=== PATIENT | male | born 1945 | race Caucasian/White ===

== ENCOUNTER 2018-05-17 10:36 | Emergency (ER) | payer OTHER ==
--- NOTE | 2018-05-17 11:01 | EDPHY ---
General Time Seen by Provider: 05/17/18 10:58 Narrative: CHIEF COMPLAINT: Left leg pain HISTORY OF PRESENT ILLNESS: Patient presents with complaints of left lower extremity pain and swelling. He reports history of squamous cell lesion excision on April 27 back in [place]. He subsequently developed some pain and swelling in the area. On May 08 he was evaluated by a physician there performed incision and drainage. He was told this was a hematoma with surrounding cellulitis, he was placed on oral clindamycin 3 times daily. At that time he also stopped taking his daily aspirin. He has been taking this as prescribed without missing any medication. Over the past few days, as they have been traveling from [facility], he notes increasing pain and swelling of this area. It is located on the left medial calf. There is no warmth. There is no fever. It is moderately painful and wakes him at night. There is some increasing firmness stem. He has no complaints distal to this. No other associated complaints or modifying factors. REVIEW OF SYSTEMS: Ten systems reviewed and are negative unless otherwise noted in the HPI PCP: In [place] SPECIALISTS: In [place] PAST MEDICAL HISTORY: Squamous cell carcinomas PAST SURGICAL HISTORY: Squamous cell lesion excision on the left calf April 27 SOCIAL HISTORY: Nonsmoker. Lives independently with his spouse in [place] FAMILY HISTORY: Noncontributory EXAMINATION General Appearance: Alert, no distress Head: normocephalic, atraumatic Eyes: Pupils equal and round, no conjunctival pallor or injection ENT, Mouth: Mucous membranes moist Neck: Normal inspection, supple, non-tender Respiratory: No retractions or distress Cardiovascular: Regular rate. Symmetric DP and PT pulses 2+. Good signs of perfusion left lower extremity. Neurological: A&O, nonfocal, normal steady gait. Skin: Warm and dry, no cellulitis. There is a left anteromedial calf hematoma with small area of fluctuance centrally. There is no warmth. No crepitus. No drainage. Extremities: Tenderness in the left medial calf hematoma. There is no significant edema. No tenderness of the left foot, ankle or knee. Range of motion of the ankles and knees are symmetric and without pain. There is no pain with passive dorsiflexion of the ankles. Psychiatric: Mood and affect normal DIFFERENTIAL DIAGNOSES: Including but not limited to hematoma, abscess, cellulitis, DVT MDM: 11:00 a.m. Left medial calf hematoma, tenderness an ongoing pain since May 08. He is status post excision and drainage with clindamycin or oral therapy since that time. He has no redness or warmth. His vital signs are within normal limits. He is neuro intact distally. No evidence of joint involvement. I have ordered ultrasound of the lower extremity. 12:05 p.m. Notified by radiologist Dr. Ho. There is a large hematoma without any evidence of DVT. I have discussed the case with Dr. Baez, and she will evaluate the patient for possible debridement. 12:30 p.m. Patient has been evaluated by Dr. Baez. She is going to perform incision and drainage of retained hematoma. 12:50 p.m. Hematoma has been evacuated by Dr. Bethanie Baez. She discussed wound care and continued clindamycin as prescribed with no further prescription. I will provide the prescription for pain medication. She would like to see him in the office as she has instructed him to do so. We discussed this plan he is comfortable this. We have also discussed ED precautions. I have answered all his questions. He discharged home stable condition per SUPERVISION: This patient was independently evaluated without direct involvement of or examination by the attending physician. - History Smoking Status: Never smoked - Objective Vital Signs: Initial Vital Signs Temperature (C) 97.9 F 05/17/18 10:37 Heart Rate 67 05/17/18 10:37 Respiratory Rate 16 05/17/18 10:37 Blood Pressure 124/77 H 05/17/18 10:37 O2 Sat (%) 95 05/17/18 10:37 O2 Delivery Mode Room Air Allergies/Adverse Reactions: No Known Allergies Allergy (Unverified 05/17/18 10:44) Home Medications: Medication Instructions Recorded Aspirin [Aspirin 81mg (*)] 05/17/18 Clindamycin 150 mg PO 05/17/18 oxyCODONE HCL/ACETAMINOPHEN 1 each PO Q4-6PRN PRN #11 tablet 05/17/18 [Percocet 5-325 mg Tablet] Departure - Departure Disposition: Home, Routine, Self-Care Clinical Impression: Infection of hematoma of wound, Hematoma Condition: Good Instructions: Oxycodone/Acetaminophen (By mouth), Hematoma (ED) Additional Instructions: 1. Medication as prescribed as needed 2. Wound care as discussed and demonstrated with Dr. Baez 3. Follow up with Dr. Baez on Friday at 9:00 a.m. Number for ED precautions as discussed Referrals: Bethanie Baez MD [Medical Doctor] - As per Instructions Prescriptions: oxyCODONE HCL/ACETAMINOPHEN [Percocet 5-325 mg Tablet] 1 each PO Q4-6PRN PRN # 11 tablet PRN Reason: Pain, Breakthrough
[2018-05-17 13:10] VITALS: BP 150/78
--- NOTE | 2018-05-17 14:04 | GCON ---
[f rep st] CONSULTATION CHIEF COMPLAINT: Left lower extremity pain. HISTORY OF PRESENT ILLNESS: The patient is a 72-year-old man who had a squamous cell excised from hi s leg on April 27 in [place]. He developed pain and swelling and had an incision and drainage perfor med on May 08. They initially thought they would pack it, but decided not to. He had surrounding cellulitis, has been placed on clindamycin, and the cellulitis has resolved. He will be in [place] for 3 weeks. He presents because the pain is worsening. He has no erythema. No fevers. PAST MEDICAL HISTORY: Squamous cell carcinoma. PAST SURGICAL HISTORY: Removal. SOCIAL HISTORY: He is a nonsmoker. He has been to his current for 5 years. He is reti red from the [employer]. 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 REVIEW OF SYSTEMS: 10-point review of systems negative. FAMILY HISTORY: Noncontributory. PHYSICAL EXAM: VITAL SIGNS: 36.6, 59, 150/78, 18, 93% on room air. GENERAL: Pleasant, well-nouris hed, well-groomed man sitting on exam table with at bedside. HEENT: Normocephalic. No gross h earing deficits. Mucous membranes moist. Pupils equal and round. No scleral icterus. LUNGS: No i ncreased work of breathing. CARDIAC: He does have swelling by the incision, but otherwise no periph eral edema. SKIN: Approximately 7 cm area of soft tissue swelling on the left lower extremity. PSY CH: Mood and affect normal. NEURO: Grossly intact. PROCEDURE PERFORMED: Verbal consent obtained. Time-out performed. The wound was prepped with Betad ine and injected with lidocaine. I made an elliptical incision and evacuated a large amount of fluid and retained hematoma. The wound measured 1.5 x 1.5 x 1.5 cm. However, it did tunnel approximately 3 cm in each direction. I enlarged the wound. I placed Nu Gauze in the wound and an Allevyn. ASSESSMENT/PLAN: The patient is a 72-year-old status post excision of squamous cell with hematoma. Cellulitis has resolved. He will need packing for the wound. He will return to my office on Friday for dressing change. /[id number]/MODL
== END 2018-05-17 13:09 | disposition home or self-care (01) ==
DX: T81.4XXA Infection following a procedure, initial encounter (principal); L76.32 Postprocedural hematoma of skin and subcutaneous tissue following other procedure; Z79.82 Long term (current) use of aspirin; Z85.828 Personal history of other malignant neoplasm of skin; Y82.8 Other medical devices associated with adverse incidents